=== PATIENT | male | born 2000 | race Two or more races ===

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

== ENCOUNTER 2025-01-22 12:04 | Emergency (ER) | payer MEDICAID ==
[~2025-01-22] VITALS: Ht 185.4 cm; Wt 82.1 kg
[2025-01-22] MEDS: ondansetron 4mg rapidly disintigrating tab PO ONE (12:31)
[2025-01-22 12:35] LABS: MEAN PLATELET VOLUME 8.9 FL (7.4-10.4); RED CELL DISTRIBUTION WIDTH 12.3 % (11.5-14.5)
[2025-01-22 12:59] LABS: CREATININE 0.81 MG/DL (0.60-1.10); TOTAL CARBON DIOXIDE 27.9 MMOL/L (24-32); eCRCL 160 ML/MIN; eGFR > 90 ML/MIN
--- NOTE | 2025-01-22 16:49 | Physician Documentation ---
History of Present Illness Chief Complaint: Abdominal Pain w/vomiting Stated Complaint: STOMACH PAIN Time Seen by MD: 16:36 Primary Medical Doctor: MONI GOFF The patient is a 24-year-old male with no significant past medical history who has had nausea, vomiting and diarrhea since 5:00 a.m. this morning. He has had no prior abdominal surgery. He takes no regular medications. Medication Reconciliation Allergies: Coded Allergies: No Known Allergies (Unverified , 01/22/25) Scheduled Beclomethasone Dipropionate (Qvar 40 MCG INHALER), 2 PUFFS INH BID, (Reported) Levalbuterol HCl (Xopenex), 1 VIAL NEB QID, (Reported) Scheduled PRN Albuterol Sulfate (Proair Hfa), 2 PUFFS IH Q6H PRN for SOB or wheezing Past Medical History Past Medical History: Asthma, Extremity Fracture Past Surgical History: tonsillectomy Alcohol Use: None Drug Use: none Lives with: Family Lives In: Home Occupation: student, child Review of Systems ROS Constitutional: Denies chills, fatigue, fever, weight gain or weight loss. HEENT: Denies hearing loss, sinus pressure or visual changes. Respiratory: Denies cough, shortness of breath or wheezing. Cardiovascular: Denies chest pain, pain while walking (claudication), edema or palpitations. Gastrointestinal: Nausea, vomiting, diarrhea and right-sided abdominal pain Genitourinary: Denies painful urination (dysuria), excessive amount of urine (polyuria) or urinary frequency. Metabolic/Endocrine: Denies cold intolerance, heat intolerance, excessive thirst (polydipsia) or excessive hunger (polyphagia). Neurological: Denies dizziness, extremity numbness, extremity weakness, headaches, seizures or tremors. Psychiatric: Denies anxiety or depression. Integumentary: Denies breast discharge, breast lump, hives, mole change(s), rash or skin lesion. Musculoskeletal: Denies back pain, joint pain, joint swelling or neck pain. Hematologic: Denies easily bleeding, easily bruises, lymphedema or issues with blood clots. Immunologic: Denies food allergies or seasonal allergies. Physical Exam Vital Signs: Temperature: 98.0, Source: Oral, Heart Rate: 120, Respiratory Rate: 16, BP: 130/72, Pulse Oximetry: 99, Weight: 82.100 Oxygen Flow Rate: 0 Physical Exam Physical Exam Vitals and nursing note reviewed. Constitutional: General: Patient is awake, alert, oriented x 4 in no acute distress and well appearing. Speech is clear and lucid. Appearance: Normal appearance. Patient is not ill-appearing, toxic-appearing or diaphoretic. HENT: Head: Normocephalic and atraumatic. Mouth/Throat: Mouth: Mucous membranes are moist. Pharynx: Oropharynx is clear. Eyes: General: No scleral icterus. Extraocular Movements: Extraocular movements intact. Pupils: Pupils are equal, round, and reactive to light. Neck: Supple, no Kernig or Brudzinski sign. Cardiovascular: Rate and Rhythm: Normal rate and regular rhythm. Heart sounds: No murmur heard. Pulmonary: Effort: No respiratory distress. Breath sounds: No wheezing, rhonchi or rales. Abdominal: General: There is no distension. Palpations: There is no fluid wave, hepatomegaly or mass. Tenderness: Right-sided abdominal tenderness upper and lower quadrants. No rebound or guarding. Musculoskeletal: General: No swelling or deformity. Skin: Coloration: Skin is not jaundiced. Findings: No erythema or rash. Neurological: Mental Status: Patient is alert. Progress Results/Orders Results/Orders Orders - DERIK SALAS MD Urinalysis, Cult If Indicated (01/22/25 12:15) Ct Abdomen Pelvis (01/22/25 16:44) Procalcitonin (01/22/25 16:44) Ondansetron Inj. (Zofran 4mg/2ml Vial) (01/22/25 16:50) Normal Saline 1,000ml Iv Bolus (01/22/25 16:50) Completed Orders - DERIK SALAS MD Cbc/Diff (01/22/25 12:15) BMP (01/22/25 12:15) Lipase (01/22/25 12:15) CMP (01/22/25 12:15) Medications Received in ER Medications (Trade) Dose Ordered Sig/Magda Route PRN Reason Start Time Stop Time Status Last Admin Dose Admin (Zofran ODT tablet) 4 mg ONCE ONCE PO 01/22/25 12:30 01/22/25 12:31 DC 01/22/25 12:31 4 MG Vital Signs 01/22/25 12:12 Temp 98.0 Pulse 120 Resp 16 B/P (MAP) 130/72 Pulse Ox 99 O2 Flow Rate 0 Laboratory Tests Test 01/22/25 12:26 White Blood Count 15.1 H Red Blood Count 5.28 Hemoglobin 15.7 Hematocrit 47.3 Mean Corpuscular Volume 89.5 Mean Corpuscular Hemoglobin 29.6 Mean Corpuscular Hemoglobin Concent 33.1 Red Cell Distribution Width 12.3 Platelet Count 282 Mean Platelet Volume 8.9 Neutrophils (%) (Auto) 94.1 H Lymphocytes (%) (Auto) 2.7 L Monocytes (%) (Auto) 3.1 Eosinophils (%) (Auto) 0 Basophils (%) (Auto) 0.1 Neutrophils # (Auto) 14.3 H Lymphocytes # (Auto) 0.4 L Monocytes # (Auto) 0.5 Eosinophils # (Auto) 0.0 Basophils # (Auto) 0.0 CBC Comment Sodium Level 142 Potassium Level 4.5 Chloride Level 104 Carbon Dioxide Level 27.9 Anion Gap 10 Blood Urea Nitrogen 23 H Creatinine 0.81 Estimated GFR/1.73 m2 > 90 BUN/Creatinine Ratio 28.4 H Glucose Level 115 H Calcium Level 9.6 Total Bilirubin 0.6 Aspartate Amino Transf (AST/SGOT) 16 Alanine Aminotransferase (ALT/SGPT) 50 Alkaline Phosphatase 75 Total Protein 8.3 H Albumin 4.5 Globulin 3.8 Albumin/Globulin Ratio 1.2 Lipase 25 Chemistry Comments Medical Decision Making Additional information obtaine: family Findings Patient presents with nausea, vomiting and diarrhea. [place] [address] scan negative for acute findings though there is a suggestion of a diarrheal disease. I am going to treat the patient with a single dose of azithromycin 1 g and prescription for Zofran. Differential Dx:Considerations: Appendicitis, Gastroenteritis Departure Disposition: HOME / SELF CARE / HOMELESS Impression: Primary Impression: Acute gastroenteritis Condition: Stable Additional Instructions: It is important to see your doctor or primary care provider. Emergency care may be incomplete without proper follow-up. Symptoms sometimes change or new symptoms might arise after you leave the emergency department. It is important that you call your doctor if you become worse in any way, or return to the emergency department. You are strongly urged to follow-up with your physician to assure complete and thorough care. Please call your doctor's office today, and informed them that you were seen in the emergency department, and that you need to be seen immediately for close follow-up. If you do not have a primary care doctor we encourage you to proactively seek a local physician for close follow-up. Consider local clinics, [facility], or local [facility]. Prior to discharge we spoke at length concerning symptoms that would merit reevaluation, but please return to the emergency department for any symptoms that are concerning to you, and we will be happy to continue your evaluation and treatment. Please note you can always return to the emergency department if you are having difficulty coordinating close follow-up. If medications were prescribed, you should fill them at your local pharmacy immediately and take only as prescribed. Bring your new medications to your doctors follow-up visit to discuss any changes that would be necessary. Please check [email or web address] for any results you did not receive in the Emergency Department: often we are unable to get all your tests back before you leave, and these tests need to be reviewed by your PCP and yourself. You can also call Medical Records if you are unable to access the internet to see [email or web address]. Return to the emergency department immediately for worsening chest pain, difficulty breathing, sweating, or other concerning emergent symptoms. Referrals: NO PRIMARY CARE PROVIDER (PCP) Prescriptions ONDANSETRON ODT 4mg tablet (ONDANSETRON ODT) 4 Mg Tab.rapdis 1 TAB PO Q6H PRN PRN for nausea/vomiting for 4 Days, #16 TAB 0 Refills Prov: DERIK SALAS MD 01/22/25 Education Educated: Patient, Family Educated regarding: diagnosis, treatment, prognosis, need for follow up Signature Scribe Signature: . Attestation: . DERIK SALAS MD Jan 22, 2025 16:49
[2025-01-22] MEDS ORDERED: iohexol 300mg/ml 100ml inj. ONE (16:55)
--- NOTE | 2025-01-22 17:32 | RADIOLOGY REPORT ---
EXAM: CT CT ABDOMEN PELVIS W/ IV CONTRAST HISTORY: Nausea, vomiting and right-sided abdominal pain COMPARISON STUDY: None TECHNIQUE: A digital crop scout image was obtained. During the uneventful, intravenous administration of contrast material, multislice data acquisition was obtained through the abdomen and pelvis. The data set was subsequently reconstructed into multiplanar reformats. RADIATION DOSE: CTDI vol 14.8 mGy. DLP 843.2 mGy.cm FINDINGS: Lungs: The lung bases are clear. Liver: Unremarkable. Spleen: Unremarkable. Pancreas: Unremarkable. Gallbladder: Unremarkable. Adrenals: Unremarkable Kidneys: Unremarkable. Pelvic Viscera: Unremarkable. Vasculature: Unremarkable. Retroperitoneum: Unremarkable. Bowel: No bowel obstruction. The appendix is normal. Fluid-filled portions of bowel. Musculoskeletal: Unremarkable. Soft tissues: Unremarkable IMPRESSION: 1. Fluid-filled bowel may reflect a diarrheal illness in the appropriate clinical setting.
[2025-01-22] MEDS: normal saline 1000ml 1,000 ML IV ONE (17:40)
[2025-01-22] MEDS: ondansetron/PF 4mg/2ml inj IV ONE (17:40)
[2025-01-22] MEDS ORDERED: ONDA-243 PO (18:09)
[2025-01-22 18:32] VITALS: BP 127/73; PULSE 114; RESP 12; TEMP 98; O2SAT 99
== END 2025-01-22 18:35 | disposition home or self-care (01) ==
LOC: ER 12:05
DX: J45.909 Unspecified asthma, uncomplicated (principal); K52.9 Noninfective gastroenteritis and colitis, unspecified; Z90.89 Acquired absence of other organs
CPT/HCPCS: 36415; 74177; 80053; 83690; 84145; 85025; 96361; 96374; 99285; J2405; J7030; Q9967